=== PATIENT | male | born 1995 | race Caucasian/White ===

== ENCOUNTER 2021-12-17 11:21 | Emergency (ER) | payer OTHER ==
[~2021-12-17] VITALS: Ht 180.3 cm; Wt 75.5 kg
[2021-12-17 11:33] VITALS: TEMP 97.7
[2021-12-17 12:16] LABS: BASO % 0.3 % (0.0-2.0); EOS % 0.1 % (0.0-4.0); GRAN # 5.9 K/mm3 (1.4-6.5); GRAN % 80.1 % (42.2-75.2); HEMATOCRIT 45.9 % (42.0-52.0); HEMOGLOBIN 16.5 g/dl (13.5-18.0); LYMPH # 0.9 K/mm3 (1.2-3.4); LYMPH % 12.6 % (20.0-51.0); MEAN CELL VOLUME 85 fl (80.0-100.0); MEAN CORPUSCULAR HEMOGLOBIN 31 pg (27-31); MEAN CORPUSCULAR HGB CONC 36 g/dl (33.0-37.0); MEAN PLATELET VOLUME 10.4 fl (7.4-10.4); MONO # 0.5 K/mm3 (0.1-0.6); MONO % 6.6 % (1.7-9.3); PLATELET COUNT 211 K/mm3 (130-400); REDCELL DISTRIBUTION WIDTH-CV 11.4 % (11.5-14.5)
[2021-12-17 12:52] LABS: ALBUMIN 4.8 gm/dL (3.5-5.0); BILIRUBIN,TOTAL 2.7 mg/dL (0.2-1.2); C-REACTIVE PROTEIN 0.02 mg/dL (0.00-0.50); CALCIUM 9.8 mg/dL (8.4-10.2); CREATININE, serum 1.06 mg/dL (0.72-1.25); POTASSIUM 4.1 mmol/L (3.5-4.5); TOTAL PROTEIN 8.2 gm/dL (6.2-8.1)
[2021-12-17 13:19] LABS: COLLECTION METHOD CLEAN CATCH
[2021-12-17 13:27] LABS: PH 7 (5-8); SQUAMOUS EPITHELIAL None Seen /hpf (0-10); URINE APPEARANCE Clear (CLEAR/HAZY); URINE BACTERIA None Seen /hpf (NONE SEEN); URINE BILIRUBIN Negative (NEGATIVE); URINE BLOOD Negative (NEGATIVE); URINE COLOR Straw (YELLOW); URINE GLUCOSE Negative (NEGATIVE); URINE KETONE Negative (NEGATIVE); URINE LEUKOCYTE ESTERASE Negative (NEGATIVE); URINE NITRATE Negative (NEGATIVE); URINE PROTEIN(semi-quant) Negative (NEGATIVE); URINE RBC 0-2 /hpf (0-2); URINE UROBILINOGEN Negative (NEGATIVE)
[2021-12-17] MEDS ORDERED: ZOFRAN INJ4 MG/2 ML IV (13:56)
[2021-12-17] MEDS ORDERED: ZOFRAN ODT4 MG PO (14:07)
[2021-12-17 14:23] VITALS: BP 126/70; PULSE 74
== END 2021-12-17 14:23 | disposition home or self-care (01) ==
LOC: COL.ER 11:21
PROVIDERS: Family Medicine
DX: R10.13 Epigastric pain (principal); R11.2 Nausea with vomiting, unspecified
CPT/HCPCS: J2405; J7120; Q9967

== ENCOUNTER 2022-03-12 14:51 | Emergency (ER) | payer OTHER ==
[~2022-03-12] VITALS: Ht 180.3 cm; Wt 78.6 kg
[~2022-03-12 14:51] MED LIST: ZOFRAN INJ4 MG/2 ML IV; ZOFRAN ODT4 MG PO
[2022-03-12 15:11] VITALS: TEMP 98.6
[2022-03-12] MEDS ORDERED: ANUSOL-HC SUPPO25 MG RC (15:27)
[2022-03-12 16:09] VITALS: BP 144/86; PULSE 81
== END 2022-03-12 16:09 | disposition home or self-care (01) ==
LOC: COL.ER 14:51
DX: K60.2 Anal fissure, unspecified (principal); Z87.19 Personal history of other diseases of the digestive system

== ENCOUNTER → 2022-03-17 | Day surgery (SDC) | payer OTHER ==
[~2022-03-17] MED LIST changes: +ANUSOL-HC SUPPO25 MG RC
== END ==
LOC: COL.CARD 07:49
DX: R00.2 Palpitations (principal)